=== PATIENT | female | born 2005 | race African-American/Black ===

== ENCOUNTER 2024-09-14 19:14 | Emergency (ER) | payer OTHER, SELFPAY ==
--- NOTE | ~2024-09-14 | XR_ITS ---
Clinical Indication: Foreign body PA and lateral views of the chest: Comparison: None Findings: The lungs are clear, without evidence of focal consolidation or pleural effusion. Cardiome diastinal silhouette is within normal limits. Bones and soft tissues are unremarkable. Impression: Normal chest. Reviewed, dictated and finalized at location . Impression: Normal chest.
[2024-09-14 19:33] VITALS: BP 130/84; PULSE 92; RESP 18; TEMP 36.6; O2SAT 100
[2024-09-14 22:47] VITALS: BP 132/95; PULSE 98; RESP 18; O2SAT 100
--- OUTSIDE RECORDS SUMMARY | 2024-09-15 01:21 | XMS_ITS | Referral Summary ---
Author Organization [facility] Address [address] [place] [address] Care Team Providers Care Curriculum Development Manager Name Role Phone Carola Samson MD Primary Care Provider [phone] Source Comments [facility],non-owned Affiliates and Associated Physician Practices is amultiple site organization consisting of ambulatory clinics and hospital sitesin [place], [place], [place] and [place]. This disclosure is being madepursuant to the Care Everywhere program and may not contain all information available regarding this patient. Last updated 18.[facility] Allergies No known active allergies Medications * Be aware that medications may not be up to date on this document. Alwaysverify current medications with the patient. Medication Sig Dispensed Refills Start Date End Date Status fluticasone propionate (FLONASE) 50 MCG/ACT nasal spray [place] 1 [place] into each nostril once daily Active ibuprofen (ADVIL; MOTRIN) 100 MG/5ML suspension 08/04/2015 Active Active Problems Problem Noted Date Diagnosed Date Open nondisplaced fracture o f distal phalanx of left middle finger 08/09/2015 Social History Tobacco Use Types Packs/Day Years Used Date Smoking Tobacco: Never Assessed Sex and Gender Information Value Date Recorded Sex Assigned at Not on file Gender Identity Not on file Sexual Orientation Not on file Last Filed Vital Signs Vital Sign Reading Time Taken Comments Blood Pressure 90/62 09/20/2017 9:16 AM CDT Pulse 80 09/20/2017 9:16 AM CDT Temperature - - Respiratory Rate 24 09/20/2017 9:16 AM CDT Oxygen Saturation 96% 09/20/2017 9:16 AM CDT Inhaled Oxygen Concentration - - Weight 41.8 kg (92 lb 2.4 oz) 09/20/2017 9:16 AM CDT Height 154 cm (5' 0.63 ) 09/20/2017 9:16 AM CDT Body Mass Index 17.63 09/20/2017 9:16 AM CDT Plan of Treatment Not on file Care Teams Curriculum Development Manager Relationship Specialty Start Date End Date Carola Samson MD [address] [place] [id number] PCP - General Pediatrics 05/06/17
--- OUTSIDE RECORDS SUMMARY | 2024-09-15 01:21 | XMS_ITS | Patient Health Summary ---
Author Organization [facility] Address [address] [place] [address] Care Team Providers Care Talent Acquisition Administrator Name Role Phone Carola Samson MD Primary Care Provider [phone] Note from [facility],non-owned Affiliates and Associated Physician Practices is amultiple site organization consisting of ambulatory clinics and hospital sitesin [place], [place]. This disclosure is being madepursuant to the Care Everywhere program and may not contain all information available regarding this patient. Last updated 18.[facility] Allergies No known active allergies Medications * Be aware that medications may not be up to date on this document. Alwaysverify current medications with the patient. * fluticasone propionate (FLONASE) 50 MCG/ACT nasal spray [place] 1 [place] into each nostril once daily * ibuprofen (ADVIL; MOTRIN) 100 MG/5ML suspension(Started 08/04/2015) Active Problems Problem Noted Date Diagnosed Date [...] Mass Index 17.63 09/20/2017 9:16 AM CDT Procedures * EKG 15-LEAD(Performed 09/20/2017) Performed for Murmur Results * EKG 15-LEAD (09/20/2017 9:09 AM CDT) Ventricular Rate 83 BPM CG MUSE Atrial Rate 83 BPM CG MUSE P-R Interval 160 ms CG MUSE QRS Duration ms 82 ms CG MUSE Q-T Interval ms 360 ms CG MUSE QTC Calculation (Bezet) 423 ms CG MUSE Calculated P [place] 43 degrees CG MUSE Calculated R [place] 20 degrees CG MUSE Calculated T [place] 34 degrees CG MUSE Interpretation EKG * Pediatric ECG Analysis * Normal sinus rhythm Normal ECG No previous ECGs available Confirmed by MD Luna Wilson ([id number]) on 09/20/2017 9:28:17 AM CG MUSE 09/20/2017 9:09 AM CDT 09/20/2017 9:28 AM CDT Dennis Luna MD ECG ORDERABLES CG MUSE Care Teams Talent Acquisition Administrator Relationship Specialty Start Date End Date Carola Samson MD [address] [place] [id number] PCP - General Pediatrics 05/06/17
--- OUTSIDE RECORDS SUMMARY | 2024-09-15 01:21 | XMS_ITS | Clinical Summary ---
Author Organization [facility] Address [address] [place] [address] Care Team Providers Care Director Transportation Name Role Phone Carola Samson MD Primary Care Provider Source Comments [facility],non-owned Affiliates and Associated Physician Practices is amultiple site organization consisting of ambulatory clinics and hospital sitesin [place], [place], [place] and [place]. This disclosure is being madepursuant to the Care Everywhere program and may not contain all information available regarding this patient. Last updated 18.[facility] Allergies No known active allergies Medications * Be aware that medications may not be up to date on this document. Alwaysverify current medications with the patient. Medication Sig Dispensed Refills Start Date End Date Status fluticasone propionate (FLONASE) 50 MCG/ACT nasal spray [place] 1 [place] into each nostril once daily Active ibuprofen [...] 09/20/2017 9:16 AM CDT Plan of Treatment Health Maintenance Due Date Last Done Comments HIV SCREENING 12/07/2018 HPV VACCINE (1 - 3-dose series) 12/07/2018 CHLAMYDIA/GONORRHEA SCREENING 2019 MENINGOCOCCAL (Group B) VACC INE SHARED DECISION-MAKING (1 of 2 - Standard) 2019 HEPATITIS C SCREENING 12/03/2021 DTAP/TDAP/TD VACCINES (1 - Tdap) 12/07/2022 HEPATITIS B VACCINE (1 of 3 - 19+ 3-dose series) 12/07/2022 COVID-19 VACCINE (1 - 2023-2 5 season) 2024 INFLUENZA VACCINE (#1) 2024 DEPRESSION SCREENING 07/01/2024 ZOSTER VACCINE (1 of 2) 12/07/2053 HIB VACCINE Aged Out No longer eligi ble based on patient's age to complete this topic MENINGOCOCCAL GROUPS A/C/Y/W VACCINE Aged Out No longer eligible b ased on patient's age to complete this topic PNEUMOCOCCAL VACCINE Aged Out No long er eligible based on patient's age to complete this topic Care Teams Director Transportation Relationship Specialty Start Date End Date Carola Samson MD [address] [place] [id number] PCP - General Pediatrics 05/06/17
[2024-09-15] MEDS: BELLADONNA ALK/PHENOB ELIX 10 ML, MAG HYDROX/ALUMINUM HYD/SIMETH 30 ML, LIDOCAINE 2% VI... PO (01:22)
--- NOTE | 2024-09-15 01:28 | ED_ITS ---
HPI - General Adult General Chief complaint: Unspecified Stated complaint: something stuck in throat Time Seen by Provider: 09/15/24 00:54 Source: patient Mode of arrival: ambulatory Limitations: no limitations History of Present Illness HPI narrative: Patient is a 18-year-old female who presents the ED with possible esophageal foreign body. Patient reports she was taking her fingernails on Saturday and believes she swallowed a piece of her fingernail clipping. States she can feel discomfort in her esophagus and throat with swallowing. Has been able to eat and drink. Denies vomiting. Denies difficulty breathing, just still has the discomfort. Related Data Allergies Allergy/AdvReac Type Severity Reaction Status Date / Time No Known Allergies Allergy Verified 09/15/24 01:21 Review of Systems Review of Systems: All systems reviewed & are unremarkable except as noted in HPI. All systems reviewed & are unremarkable except as noted in HPI and below Exam Narrative: GENERAL: Well appearing, thin, non-toxic, in no acute distress. HEAD: Normocephalic, atraumatic. RESPIRATORY: Airway patent, respirations nonlabored. Clear to auscultation bilaterally, no rales, rhonchi, wheezing. No stridor or distress. CARDIOVASCULAR: Regular rate and rhythm without murmurs, rubs, or gallops. MUSCULOSKELETAL: Moves all extremities. No gross deformities. SKIN: Warm, dry, normal color. NEURO: A&O X3. Speech clear. PSYCHIATRIC: Appropriate mood and affect. Normal interaction. Course Vital Signs Vital signs: Vital Signs Temperature 97.9 F 09/14/24 19:33 Pulse Rate 92 09/14/24 19:33 Respiratory Rate 18 09/14/24 19:33 Blood Pressure 130/84 09/14/24 19:33 Pulse Oximetry 100 09/14/24 19:33 Oxygen Delivery Room Air 09/14/24 19:33 Temperature 97.9 F 09/14/24 19:33 Pulse Rate 98 09/14/24 22:47 Respiratory Rate 18 09/14/24 22:47 Blood Pressure 132/95 H 09/14/24 22:47 Pulse Oximetry 100 09/14/24 22:47 Oxygen Delivery Room Air 09/14/24 19:33 Medical Decision Making MDM Narrative Medical decision making narrative: Patient presented to ED with possible esophageal foreign body. Believes she may have swallowed a fingernail clipping on Saturday. Vital signs are stable upon arrival. She is able to keep down food and drink. Denies vomiting or regur gitation. Patient in no respiratory distress. Denying any respiratory symptoms. No stridor. Chest x-ray interpreted by myself without evidence of foreign body or focal infiltrates. Patient given GI cocktail. On re- evaluation, she is feeling improved. Feel she is safe for discharge home at this time. Will refer to GI for further evaluation. Will start on omeprazole for suspected esophagitis. Given strict return precautions. She agrees with plan. Discharged in stable condition. Medical Records Medical records reviewed: Yes I reviewed the external patient's medical records. Vital Signs Vital Signs: Vital Signs Temperature 97.9 F 09/14/24 19:33 Pulse Rate 92 09/14/24 19:33 Respiratory Rate 18 09/14/24 19:33 Blood Pressure 130/84 09/14/24 19:33 Pulse Oximetry 100 09/14/24 19:33 Oxygen Delivery Room Air 09/14/24 19:33 Temperature 97.9 F 09/14/24 19:33 Pulse Rate 98 09/14/24 22:47 Respiratory Rate 18 09/14/24 22:47 Blood Pressure 132/95 H 09/14/24 22:47 Pulse Oximetry 100 09/14/24 22:47 Oxygen Delivery Room Air 09/14/24 19:33 Imaging Data Attestation: I personally reviewed and interpreted this imaging study as follows: My impression: CXR: No acute cardiopulmonary abnormality. No obvious acute foreign body. Discharge Plan Discharge Clinical Impression: Esophagitis Esophageal foreign body Qualifiers: Encounter type: initial encounter Qualified Code(s): T18.108A - Unspecified foreign body in esophagus causing other injury, initial encounter Patient Disposition: Home, Self-Care Condition: Stable Instructions: Antibiotic Form, Esophageal Foreign Body (ED), Esophagitis (ED) Additional Instructions: Take omeprazole daily as prescribed. Stay well hydrated. Follow-up with GI for further evaluation if needed. Return to the ED if you experience worsening or severe discomfort, difficulty keeping down food or drink, difficulty breathing, coughing blood, or any other symptoms of concern. Patient Language: Romanian Prescriptions: New omeprazole 20 mg capsule,delayed release(DR/EC) 20 mg PO DAILY Qty: 30 0RF Follow-up/Referrals: PHYSICIAN,INSURANCE LICENSING SUPERVISOR [Primary Care Provider] - Ashu Ann MD [Physician] - (GI) Time of Disposition: 02:09
[2024-09-15 02:20] VITALS: BP 126/87; PULSE 91; RESP 17; O2SAT 99
== END 2024-09-15 02:19 | disposition home or self-care (01) ==
PROVIDERS: Emergency Provider Physician Assistant
DX: K20.90 Esophagitis, unspecified without bleeding (principal); T18.108A Unspecified foreign body in esophagus causing other injury, initial encounter; W44.8XXA Other foreign body entering into or through a natural orifice, initial encounter
CPT/HCPCS: 71046; 99283; A9270